=== PATIENT | female | born 1995 | race Caucasian/White ===

== ENCOUNTER 2018-02-26 01:25 | Emergency (ER) | payer OTHER ==
--- NOTE | 2018-02-26 02:06 | ER Document Report ---
ED General - General Chief Complaint: Vag Bleeding, +preg <12wks Stated Complaint: VAGINAL BLEEDING Time Seen by Provider: 02/26/18 01:53 Notes: Patient is a 22-year-old female presents with complaint of vaginal bleeding during . She is partially 5 weeks . This is her fourth . She has had 3 normal vaginal deliveries without complication with her previous pregnancies. Her blood type is A+. She has some small amount of pelvic pain on the left side. No abnormal vaginal discharge. No dysuria. No recent fevers. She has had some nausea vomiting with this . She is currently not taking anything for her vomiting. TRAVEL OUTSIDE OF THE [place] IN LAST 30 DAYS: No - Related Data Allergies/Adverse Reactions: No Known Allergies Allergy (Verified 02/26/18 03:02) Past Medical History - Social History Smoking Status: Never Smoker Frequency of alcohol use: None Drug Abuse: None Family History: Reviewed & Not Pertinent - Immunizations Hx Diphtheria, Pertussis, Tetanus Vaccination: Yes Physical Exam - Vital signs Vitals: Temp Pulse Resp BP Pulse Ox 98.5 F 101 H 18 136/81 H 98 02/26/18 01:29 02/26/18 01:29 02/26/18 01:29 02/26/18 01:29 02/26/18 01:29 - Notes Notes: General Appearance: Well nourished, alert, cooperative, no acute distress, no obvious discomfort. Vitals: reviewed, See vital signs table. Eyes: PERRL, EOMI, Conjuctiva clear Lungs: No wheezing, No rales, No rhonci, No accessory muscle use, good air exchange bilaterally. Heart: Normal rate, Regular rythm, No murmur, no rub Abdomen: Normal BS, soft, No rigidity, mild left lower quadrant abdominal tenderness palpation, No guarding, Pelvic exam: External genitalia. Piercing in the clitoral fernandez. No abnormal vaginal discharge or bleeding on pelvic exam. Cervical also disclosed. No pain during exam. Exam performed with nurse Susy De Dios in the room as theatre program director. Extremities: strength 5/5 in all extremities, good pulses in all extremities, no swelling or tenderness in the extremities, no edema. Skin: warm, dry, appropriate color, no rash Neuro: speech clear, oriented x 3, normal affect, responds appropriately to questions. Course - Re-evaluation Re-evalutation: 02/26/18 04:23 Patient's hCG level came back below 2000. Ultrasound does not yet show intrauterine or extra uterine . Talk to patient length informed her that this could potentially be just early with vaginal bleeding, a miscarriage, or a very early ectopic. I think ectopic is highly unlikely this patient has hardly any pain on exam and she looks very well with normal vital signs. I informed her that this bites her being well-appearing that she should still needs to be to follow-up with her OB doctor or return to the ER in 3 days for reevaluation and recheck of her hormone level. If it is decreasing significantly then she most likely a miscarriage. If it is increasing she may need a repeat ultrasound to confirm intrauterine . Patient agrees with plan will be discharged home. She is encouraged to return to ER immediately if she has heavy bleeding, severe pain, heaviness, dizziness, or she feels unwell. Patient agrees with plan will be discharged home. Dictation of this chart was performed using voice recognition software; therefore, there may be some unintended grammatical errors. - Vital Signs Vital signs: Temp Pulse Resp BP Pulse Ox 98.5 F 101 H 18 136/81 H 98 02/26/18 01:29 02/26/18 01:29 02/26/18 01:29 02/26/18 01:29 02/26/18 01:29 - Laboratory Laboratory results interpreted by me: 02/26/18 02/26/18 02:00 02:00 Beta HCG, Quant 1947.30 H Urine Blood LARGE H Discharge - Discharge Clinical Impression: Vaginal bleeding during Condition: Good Disposition: HOME, SELF-CARE Additional Instructions: Please return to the ER or your OB doctor in 3 days to have your HCG level rechecked. Rechecking your HCG level will give us a better idea as to whether you are having a miscarriage or just bleeding in early . It is still possible you could have an early ectopic ; therefore, you should have a very low threshold to return to the ER if you have worsening pain, heavy vaginal bleeding, fevers or feel unwell in any way. Please take vitamins. I have prescribed Reglan. This is a medication that is safe in that you can take for nausea and vomiting. A small percentage of people develop some muscle twitching with this medication. If you develop muscle twitching you can stop the medication and take 25mg of Benadryl. If the twitching continues you should return to the ER. Prescriptions: Metoclopramide HCl [Reglan 10 mg Tablet] 1 tab PO ASDIR PRN #25 tablet PRN Reason: Referrals: ADIS KAN MD [ACTIVE STAFF] - 02/28/18
--- NOTE | 2018-02-26 03:26 | RADIOLOGY REPORT (SQ) ---
EXAM DESCRIPTION: US TRANSVAGINAL CLINICAL HISTORY: 22 years Female, pelvic pain with bleeding in Comparison: None. TECHNIQUE: Transvaginal. LIMITATIONS: None. FINDINGS: No definite intrauterine identified. Indeterminate cystic collection the endometrial cavity measures 0.5 cm. If this were viable, mean sac diameter of 0.5 cm would correspond with a gestational age of five weeks and two days. Small fluid in the endometrial cavity. No yolk sac, no pole, no decidual reaction, no cardiac activity. 3.5-cm right ovary, 2.5-cm left ovary, 2.8-cm likely rightcorpus luteum, 3.6-cm cervical length, and small right adnexal free fluid. IMPRESSION: No intrauterine confirmed. Differential diagnosis includes occult early viable gestation, gestational loss, and occult ectopic gestation. Recommend 48-72 hour laboratory/sonographic surveillance.
[2018-02-26 03:35] LABS: AMORPHOUS SEDIMENT,URINE TRACE /HPF; APPEARANCE,URINE SLIGHTLY-CLOUDY; BILIRUBIN,URINE NEGATIVE (NEGATIVE); COLOR,URINE YELLOW; GLUCOSE, URINE NEGATIVE (NEGATIVE); KETONES,URINE NEGATIVE (NEGATIVE); LEUKOCYTE ESTERASE,URINE NEGATIVE (NEGATIVE); NITRITE,URINE NEGATIVE (NEGATIVE); PROTEIN,URINE NEGATIVE (NEGATIVE); URINE SPECIFIC GRAVITY 1.011; UROBILINOGEN,URINE NEGATIVE mg/dL (<2.0)
[2018-02-26 04:24] VITALS: BP 135/75
== END 2018-02-26 04:24 | disposition home or self-care (01) ==
LOC: ER 01:25
DX: O20.9 Hemorrhage in early pregnancy, unspecified (principal); O26.891 Other specified pregnancy related conditions, first trimester; R10.2 Pelvic and perineal pain; O21.9 Vomiting of pregnancy, unspecified; Z3A.00 Weeks of gestation of pregnancy not specified
CPT/HCPCS: 36415; 76817; 81001; 84702; 93976; 99284